=== PATIENT | female | born 1945 | race Caucasian/White ===

== ENCOUNTER 2019-09-07 12:57 | Emergency (ER) | payer OTHER, MEDICAID ==
[~2019-09-07] VITALS: Ht 165.1 cm; Wt 90.7 kg
[2019-09-07 14:33] LABS: BILIRUBIN NEGATIVE (NEGATIVE); BLOOD 1+ (NEGATIVE); CLARITY CLOUDY (CLEAR); COLOR YELLOW (YELLOW); GLUCOSE NEGATIVE (NEGATIVE); KETONE NEGATIVE (NEGATIVE); SPECIFIC GRAVITY 1.005 (1.005-1.030)
[2019-09-07 14:34] LABS: BACTERIA 3+; LEUKO ESTERASE 3+ (NEGATIVE); NITRITE NEGATIVE (NEGATIVE); UROBILINOGEN 0.2 E.U./dl (0.2-1.0); WBC TNTC wbc/hpf (0-5)
[2019-09-07] MEDS ORDERED: VIBRAMYCIN100 MG PO (15:05)
== END 2019-09-07 15:08 | disposition home or self-care (01) ==
LOC: ED 12:57
PROVIDERS: Nurse Practitioner Family
DX: M54.41 Lumbago with sciatica, right side (principal); N39.0 Urinary tract infection, site not specified; E11.9 Type 2 diabetes mellitus without complications; Z88.6 Allergy status to analgesic agent; W22.8XXA Striking against or struck by other objects, initial encounter; Y93.E9 Activity, other interior property and clothing maintenance; Y92.89 Other specified places as the place of occurrence of the external cause; Y99.8 Other external cause status

== ENCOUNTER 2019-10-03 23:40 | Inpatient (IN) | payer OTHER, MEDICAID ==
[~2019-10-03] VITALS: Ht 157.5 cm; Wt 80.8 kg
[~2019-10-03 23:40] MED LIST: VIBRAMYCIN100 MG PO
[2019-10-03 23:43] VITALS: BP 149/68
[2019-10-04 00:16] LABS: BASO % 0.3 % (0.0-1.0); EOS # 0.1 10*3/uL (0.0-0.4); EOS % 1.2 % (1.0-4.0); LYMPH # 1.1 10*3/uL (1.3-4.4); LYMPH % 10.4 % (27.0-41.0); MEAN CELL VOLUME 91.4 fl (81.0-99.0); MEAN CORPUSCULAR HGB 28.5 pg (27.0-31.0); MEAN CORPUSCULAR HGB CONC 31.2 g/dl (33.0-37.0); MONO # 0.8 10*3/uL (0.1-1.0); MONO % 7.9 % (3.0-9.0); NEUT # 8.4 10*3/uL (2.3-7.9); NEUT % 79.6 % (47.0-73.0); PLATELET COUNT AUTOMATED 201 10*3/uL (130-400); RED BLOOD COUNT 3.61 10*6/uL (4.10-5.10); RED CELL DISTRI WIDTH 14.5 % (0-14.5); WHITE BLOOD COUNT 10.6 10*3/uL (4.8-10.8)
[2019-10-04 00:28] LABS: INTERNATIONAL NORM RATIO 1.1 (2.0-3.5)
[2019-10-04 00:34] LABS: ALKALINE PHOSPHATASE 100 U/L (45-117); BUN 19 mg/dl (7-24); CHLORIDE 106 mmol/L (98-107); CREATININE 1.46 mg/dL (0.55-1.02); POTASSIUM 3.5 mmol/L (3.5-5.1); SGOT/AST 14 IU/L (3-35); SGPT/ALT 16 U/L (12-78); SODIUM 136 mmol/L (136-145); TOTAL PROTEIN 6.3 gm/dL (6.4-8.2)
[2019-10-04 00:35] LABS: BILIRUBIN NEGATIVE (NEGATIVE); BLOOD TRACE-INTACT (NEGATIVE); CLARITY CLOUDY (CLEAR); COLOR YELLOW (YELLOW); GLUCOSE NEGATIVE (NEGATIVE); KETONE NEGATIVE (NEGATIVE); LEUKO ESTERASE 3+ (NEGATIVE); NITRITE POSITIVE (NEGATIVE); SPECIFIC GRAVITY 1.015 (1.005-1.030); UROBILINOGEN 0.2 E.U./dl (0.2-1.0)
[2019-10-04 00:45] LABS: TROPONIN I < 0.015 ng/ml (<0.045)
[2019-10-04 00:46] LABS: BACTERIA 3+; EPITHELIAL CELLS TNTC; WBC TNTC wbc/hpf (0-5)
[2019-10-04 01:44] VITALS: BP 132/80
--- NOTE | 2019-10-04 01:44 | NUR ---
A 74, admitted to 5E, under the services of ELIJAH Ziegler DO with a diagnosis of UTI,SEPSIS. Chief complaint is CAMED VIA EMS WITH CHILLS,HOT FLASHES,FEVER,NEAR SYNCOPE. Patient arrived via stretcher from ER. Monitor applied. Initial assessment completed. Vital signs taken and recorded. ELIJAH ZIEGLER DO notified of admission to the 5E unit. Orders received. See assessment for past medical history, medications and allergies. Patient and/or family oriented to unit. [facility] visitation policy reviewed. Clothing/patient valuable form completed. JAMES DIAMOND
[2019-10-04 01:48] VITALS: BP 112/76
--- NOTE | 2019-10-04 02:20 | NUR ---
RESTORIL GIVEN FOR INSOMNIA AND FLEXERIL GIVEN FOR SCIATIC PAIN. SEE MAR.
[2019-10-04] MEDS ORDERED: ARIPIPRAZOLE15 MG PO (02:43)
[2019-10-04] MEDS ORDERED: OXCARBAZEPINE150 MG PO (02:43)
[2019-10-04] MEDS ORDERED: BUSPIRONE HCL10 MG PO (02:44)
[2019-10-04] MEDS ORDERED: BENZTROPINE MESY1 MG PO (02:45)
[2019-10-04] MEDS ORDERED: TRAZODONE50 MG PO (02:46)
[2019-10-04] MEDS ORDERED: SINEMET 25-1001 EACH PO (02:47)
[2019-10-04] MEDS ORDERED: ENALAPRIL MALEAT5 MG PO (02:49)
[2019-10-04] MEDS ORDERED: ESOMEPRAZOLE MA40 M1 PO (02:50)
[2019-10-04] MEDS ORDERED: FUROSEMIDE20 M1 PO (02:50)
[2019-10-04] MEDS ORDERED: JANUVIA100 MG PO (02:51)
[2019-10-04] MEDS ORDERED: METOPROLOL SUCC50 M1 PO (02:51)
[2019-10-04] MEDS ORDERED: SIMVASTATIN40 MG PO (02:52)
[2019-10-04] MEDS ORDERED: ROPINIROLE HYDRO4 MG PO (02:52)
[2019-10-04] MEDS ORDERED: TRULICITY1.5 MG/0.5 SC (02:53)
[2019-10-04] MEDS ORDERED: VIIBRYD40 PO (02:56)
--- NOTE | 2019-10-04 03:20 | NUR ---
RESTORIL AND FLEXERIL EFFECTIVE PER PT. PATIENT SLEEPING INBETWEEN GETTING UP TO BEDSIDE COMMODE TO VOID.
--- NOTE | 2019-10-04 06:44 | NUR ---
PT. HAS BEEN UP AND DOWN VOIDING AND HAD 2 SMALL FORMED STOOL.
[2019-10-04 08:00] VITALS: BP 122/74
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
--- NOTE | 2019-10-04 10:30 | NUR ---
PT COMPLAIN OF LOWER BACK PAIN, TYLENOL GIVEN
--- NOTE | 2019-10-04 10:34 | NUR ---
AUTOMATIC CLIPPER SPOKE WITH THE PATIENT. PATIENT WOULD LIKE TO HAVE HOME HEALTH. PATIENT STATED SHE IS FAMILIAR WITH THE AGENCIES IN THE AREA, SO SHE DOES NOT CARE WHICH COMPANY SHE WOULD HAVE. PATIENT WILL NEED PT/OT ORDERS. AUTOMATIC CLIPPER NOTIFIED [facility] HOSPITALIST COORDINATOR, AND WILL NEED A FACE TO FACE COMPLETED. AUTOMATIC CLIPPER WILL NOTIFY HAND FUR CLEANER.
--- NOTE | 2019-10-04 11:30 | NUR ---
tylenol effective for pain
[2019-10-04 12:00] VITALS: BP 110/68
--- NOTE | 2019-10-04 12:07 | NUR ---
TERRA COTTA MOLD MAKER SPOKE WITH THE PATIENT. SHE DOES NOT CURRENTLY HAVE A PCP. TERRA COTTA MOLD MAKER OFFERED TO HAVE RN HOSPITALIST MAKE HER AN APPOINTMENT WITH THE RESIDENCY CLINIC. PATIENT IS AGREEABLE. TERRA COTTA MOLD MAKER FAXED REFERRAL TO [facility]. WILL NEED A FACE TO FACE.
[2019-10-04 16:00] VITALS: BP 109/65
--- NOTE | 2019-10-04 17:40 | NUR ---
PT COMPLAIN OF BACK PAIN, TYLENOL GIVEN. WILL MONITOR FOR EFFECTIVENSS
[2019-10-04 20:00] VITALS: BP 127/64
--- NOTE | 2019-10-04 22:54 | NUR ---
FAMILY UPDATED ON PLAN OF CARE
--- NOTE | 2019-10-04 23:36 | NUR ---
TYLENOL GIVEN FOR C/O RT HIP PAIN. SCHEDULED MED GIVEN AT THIS TIME. WILL MONITOR EFFECTIVENESS OF TYLENOL.
[2019-10-05] VITALS: BP 121/62
--- NOTE | 2019-10-05 00:20 | NUR ---
PATIENT SLEEPING, NO S/S DISTRESS ON ROOM AIR. TYLENOL APPEARS EFFECTIVE.
[2019-10-05 07:09] LABS: BASO % 0.4 % (0.0-1.0); EOS # 0.2 10*3/uL (0.0-0.4); EOS % 2.6 % (1.0-4.0); LYMPH # 1.4 10*3/uL (1.3-4.4); LYMPH % 19.9 % (27.0-41.0); MEAN CELL VOLUME 91.9 fl (81.0-99.0); MEAN CORPUSCULAR HGB 28.4 pg (27.0-31.0); MEAN CORPUSCULAR HGB CONC 30.9 g/dl (33.0-37.0); MEAN PLATELET VOLUME 11.2 fl (9.6-12.3); MONO # 0.7 10*3/uL (0.1-1.0); MONO % 10.5 % (3.0-9.0); NEUT # 4.5 10*3/uL (2.3-7.9); NEUT % 65.7 % (47.0-73.0); PLATELET COUNT AUTOMATED 216 10*3/uL (130-400); RED BLOOD COUNT 3.59 10*6/uL (4.10-5.10); RED CELL DISTRI WIDTH 14.8 % (0-14.5); WHITE BLOOD COUNT 6.9 10*3/uL (4.8-10.8)
[2019-10-05 07:40] LABS: CREATININE 1.4 mg/dL (0.55-1.02); POTASSIUM 3.7 mmol/L (3.5-5.1)
[2019-10-05 08:00] VITALS: BP 126/68
--- NOTE | 2019-10-05 08:00 | NUR ---
PATIENT REQUESTED AND RECIEVED PO TYLENOL PER PRN ORDER FOR C/O RIGHT HIP PAIN. RATES PAIN 8/10. CHRONIC PAIN FOR THE PAST MONTH PER PT. WILL MONITOR EFFECTIVENESS. CALL LIGHT WITHIN REACH.
--- NOTE | 2019-10-05 09:00 | NUR ---
TYLENOL EFFECTIVE FOR PAIN. WILL CONTINUE TO MONITOR.
[2019-10-05 12:00] VITALS: BP 131/72
--- NOTE | 2019-10-05 14:49 | NUR ---
PT MEDICATED WITH PO TYLENOL PER PRN ORDER FOR C/O RIGHT HIP PAIN. RATES PAIN 10/31. WILL MONITOR EFFECTIVENESS.
--- NOTE | 2019-10-05 15:49 | NUR ---
TYLENOL SLIGHTLY RELIEVING PAIN PER PT. WILL CONTINUE TO MONITOR.
--- NOTE | 2019-10-05 15:49 | NUR ---
TYLENOL RELIEVING PAIN PER PT. WILL CONTINUE TO MONITOR.
[2019-10-05 16:00] VITALS: BP 117/58
--- NOTE | 2019-10-05 18:24 | NUR ---
JERRYCO GIVEN X1 DOSE PER ORDER FOR C/O RIGHT HIP PAIN. RATES PAIN 8/10. WILL MONITOR EFFECTIVENESS.
--- NOTE | 2019-10-05 19:24 | NUR ---
PATIENT STATES NORCO IS EFFECTIVE FOR HER PAIN. PROVIDED WITH CHOCOLATE MILK AND CHAY CRACKERS PER REQUEST. PATIENT RESTING IN BED WITH EASY AND REGULAR RESPIRATIONS. CALL LIGHT IN REACH.
[2019-10-05 20:00] VITALS: BP 122/54
[2019-10-06] VITALS: BP 122/63
--- NOTE | 2019-10-06 03:15 | NUR ---
PT SLEEPING; SNORING RESPIRATIONS. CALL LIGHT IN REACH.
--- NOTE | 2019-10-06 05:16 | NUR ---
TYLENOL GIVEN FOR C/O SCIATIC PAIN. PATIENT ASSISTED TO REPOSITION IN BED WITH A WEDGE PILLOW AND PT STATES THAT SHE FEELS MUCH BETTER. PO MEDS TAKEN WITH EASE, BED IN LOWEST, LOCKED POSITION, CALL LIGHT IN REACH.
[2019-10-06 06:28] LABS: BASO % 0.3 % (0.0-1.0); EOS # 0.3 10*3/uL (0.0-0.4); EOS % 4.7 % (1.0-4.0); HEMATOCRIT 33.2 % (37.0-47.0); LYMPH # 1.6 10*3/uL (1.3-4.4); LYMPH % 25.5 % (27.0-41.0); MEAN CORPUSCULAR HGB 28.9 pg (27.0-31.0); MEAN PLATELET VOLUME 10.9 fl (9.6-12.3); MONO # 0.6 10*3/uL (0.1-1.0); NEUT # 3.6 10*3/uL (2.3-7.9); NEUT % 58.5 % (47.0-73.0); PLATELET COUNT AUTOMATED 230 10*3/uL (130-400); RED BLOOD COUNT 3.57 10*6/uL (4.10-5.10); RED CELL DISTRI WIDTH 14.6 % (0-14.5); WHITE BLOOD COUNT 6.2 10*3/uL (4.8-10.8)
[2019-10-06 08:00] VITALS: BP 131/66
--- NOTE | 2019-10-06 08:15 | NUR ---
IN TO SEE PATIENT THIS AM.
--- NOTE | 2019-10-06 09:27 | NUR ---
NORCO PO GIVEN X1 ORDER FOR C/O RIGHT HIP PAIN. RATES PAIN /10. WILL MONITOR EFFECTIVENESS. PT REPOSITIONED FOR COMFORT. CALL LIGHT WITHIN REACH.
[2019-10-06] MEDS ORDERED: CEPHALEXIN500 M1 PO (10:13)
--- NOTE | 2019-10-06 10:27 | NUR ---
JERRYCO EFFECTIVE PER PT. WILL CONTINUE TO MONITOR. CALL LIGHT WITHIN REACH.
[2019-10-06] MEDS ORDERED: NORCO 5-325 TA1 EACH PO (10:28)
--- NOTE | 2019-10-06 10:39 | NUR ---
Discharge instructions reviewed with patient. Patient receptive and verbalizes understanding. Follow-up care arranged. Written instructions given to patient. GAURANG VARGHESE
--- NOTE | 2019-10-06 11:30 | NUR ---
PATIENT DISCHARGED AT THIS TIME. BELONGINGS WITH PATIENT.
== END 2019-10-06 11:30 | disposition home health service (06) | DRG 872 ==
LOC: ED 23:40 → EDHOLD 10-04 01:01 → 5E 10-04 01:01
PROVIDERS: Internal Medicine; Physician Assistant; ADMIT Family Medicine
DX: A41.9 Sepsis, unspecified organism (principal); N30.01 Acute cystitis with hematuria; E44.0 Moderate protein-calorie malnutrition; D64.9 Anemia, unspecified; N18.3 Chronic kidney disease, stage 3 (moderate); E11.65 Type 2 diabetes mellitus with hyperglycemia; E11.22 Type 2 diabetes mellitus with diabetic chronic kidney disease; E78.5 Hyperlipidemia, unspecified; I12.9 Hypertensive chronic kidney disease with stage 1 through stage 4 chronic kidney disease, or unspecified chronic kidney disease; F32.9 Major depressive disorder, single episode, unspecified; Z96.653 Presence of artificial knee joint, bilateral; M54.31 Sciatica, right side; B96.20 Unspecified Escherichia coli [E. coli] as the cause of diseases classified elsewhere; M79.671 Pain in right foot; G47.30 Sleep apnea, unspecified; G20 Parkinson's disease; Z88.5 Allergy status to narcotic agent; I25.2 Old myocardial infarction; Z90.49 Acquired absence of other specified parts of digestive tract; Z90.710 Acquired absence of both cervix and uterus; Z82.49 Family history of ischemic heart disease and other diseases of the circulatory system; Z79.899 Other long term (current) drug therapy; Z68.32 Body mass index [BMI] 32.0-32.9, adult

== ENCOUNTER → 2019-10-11 | Outpatient (CLI) | payer OTHER, MEDICAID ==
[~2019-10-11] MED LIST changes: +ARIPIPRAZOLE15 MG PO; +BENZTROPINE MESY1 MG PO; +BUSPIRONE HCL10 MG PO; +CEPHALEXIN500 M1 PO; +ENALAPRIL MALEAT5 MG PO; +ESOMEPRAZOLE MA40 M1 PO; +FUROSEMIDE20 M1 PO; +JANUVIA100 MG PO; +METOPROLOL SUCC50 M1 PO; +NORCO 5-325 TA1 EACH PO; +OXCARBAZEPINE150 MG PO; +ROPINIROLE HYDRO4 MG PO; +SIMVASTATIN40 MG PO; +SINEMET 25-1001 EACH PO; +TRAZODONE50 MG PO; +TRULICITY1.5 MG/0.5 SC; +VIIBRYD40 PO
== END | disposition home or self-care (01) ==
LOC: RESCLI 01:54
DX: M54.31 Sciatica, right side (principal); M54.32 Sciatica, left side; G20 Parkinson's disease; F32.9 Major depressive disorder, single episode, unspecified; E78.5 Hyperlipidemia, unspecified; I10 Essential (primary) hypertension; G47.30 Sleep apnea, unspecified; Z09 Encounter for follow-up examination after completed treatment for conditions other than malignant neoplasm; Z79.899 Other long term (current) drug therapy; Z95.828 Presence of other vascular implants and grafts; Z90.49 Acquired absence of other specified parts of digestive tract; Z90.710 Acquired absence of both cervix and uterus; Z98.890 Other specified postprocedural states; Z88.5 Allergy status to narcotic agent

== ENCOUNTER 2019-11-07 19:35 | Inpatient (IN) | payer OTHER, MEDICAID ==
[~2019-11-07] VITALS: Ht 157.4 cm; Wt 79.4 kg
[2019-11-07 19:45] VITALS: BP 63/31
[2019-11-07 19:55] VITALS: BP 82/32
[2019-11-07 19:58] LABS: BASO % 0.4 % (0.0-1.0); EOS # 0.2 10*3/uL (0.0-0.4); EOS % 2.5 % (1.0-4.0); LYMPH % 24.9 % (27.0-41.0); MEAN CELL VOLUME 91.6 fl (81.0-99.0); MEAN CORPUSCULAR HGB 28.3 pg (27.0-31.0); MEAN CORPUSCULAR HGB CONC 30.9 g/dl (33.0-37.0); MEAN PLATELET VOLUME 10.6 fl (9.6-12.3); MONO # 0.5 10*3/uL (0.1-1.0); NEUT # 5.4 10*3/uL (2.3-7.9); NEUT % 65.7 % (47.0-73.0); PLATELET COUNT AUTOMATED 208 10*3/uL (130-400); RED BLOOD COUNT 3.71 10*6/uL (4.10-5.10); RED CELL DISTRI WIDTH 13.9 % (0-14.5); WHITE BLOOD COUNT 8.1 10*3/uL (4.8-10.8)
[2019-11-07 20:10] LABS: ACT PARTIAL THROMBO TIME 25.3 SECONDS (20.0-32.1); INTERNATIONAL NORM RATIO 1.1 (2.0-3.5)
[2019-11-07 20:15] LABS: ALBUMIN 2.9 gm/dl (3.1-4.5); ALKALINE PHOSPHATASE 80 U/L (45-117); BUN 19 mg/dl (7-24); CHLORIDE 107 mmol/L (98-107); CREATININE 1.84 mg/dL (0.55-1.02); POTASSIUM 3.9 mmol/L (3.5-5.1); SGOT/AST 17 IU/L (3-35); SGPT/ALT 11 U/L (12-78); SODIUM 139 mmol/L (136-145)
[2019-11-07 20:16] LABS: TROPONIN I < 0.015 ng/ml (<0.045)
--- NOTE | 2019-11-07 20:19 | NUR ---
PT RESTING WITH TELEVISION ON. DENIES NEEDS AT THIS TIME. UNABLE TO PROVIDE URINE SAMPLE WILL TRY AGAIN LATER.
[2019-11-07 20:50] VITALS: BP 79/40
--- NOTE | 2019-11-07 20:51 | NUR ---
VERBAL PERMISSION GIVEN TO UPDATE FAMILY. YOLANDE. PHONE NUMBER [phone].
[2019-11-07 21:18] VITALS: BP 91/52
--- NOTE | 2019-11-07 22:08 | NUR ---
PT UP TO BEDSIDE COMMODE. UNABLE TO URINATE AT THIS TIME.
[2019-11-07 22:16] VITALS: BP 102/65
[2019-11-07 23:48] LABS: BILIRUBIN NEGATIVE (NEGATIVE); BLOOD NEGATIVE (NEGATIVE); CLARITY CLOUDY (CLEAR); COLOR YELLOW (YELLOW); GLUCOSE NEGATIVE (NEGATIVE); KETONE NEGATIVE (NEGATIVE); LEUKO ESTERASE 3+ (NEGATIVE); NITRITE POSITIVE (NEGATIVE); SPECIFIC GRAVITY 1.015 (1.005-1.030); UROBILINOGEN 0.2 E.U./dl (0.2-1.0)
[2019-11-08] VITALS (7 sets, daily range): BP systolic 104–138; BP diastolic 56–74
[2019-11-08] LABS: EPITHELIAL CELLS 41-50
[2019-11-08 00:01] LABS: BACTERIA 3+; WBC TNTC wbc/hpf (0-5)
--- NOTE | 2019-11-08 00:23 | NUR ---
PT RESTING COMFORTABLY. SAFETY PRECAUTIONS INTACT. AWAITING ROOM ASSIGNMENT FROM INPATIENT.
--- NOTE | 2019-11-08 02:35 | NUR ---
ACS EKG SET COMPLETE. PT RESTING ON LEFT SIDE. SAFETY PRECAUTIONS INTACT. CALL LIGHT WITH IN REACH.
--- NOTE | 2019-11-08 02:51 | NUR ---
PT HAD A LARGE SOFT BROWN BOWEL MOVEMENT.PT REQUESTING PAIN MEDICATION.PT ALSO WOULD LIKE HOSPITAL BED.[facility] CONTACTED FOR FLOOR BED.
--- NOTE | 2019-11-08 06:35 | NUR ---
PATIENT CURRENTLY IN ED HOLD AWAITING ADMISSION TO FLOOR. ADMISSION PROCESS STARTED AND PATIENT WILL RECEIVE BED ASSIGNMENT SOON. PATIENT STATED DILAUDID THAT SHE WAS GIVEN BY WEBLOGIC ADMINISTRATOR WAS EFFECTIVE AT REDUCING PAIN.
--- NOTE | 2019-11-08 07:13 | NUR ---
CALLED AND NOTIFIED NURSING SUPERVISOR LOOPING OF PROGRESS MADE WITH ADMISSION AND MED REC STILL NEEDS COMPLETED PATIENT HAS TWO PHARMACY AND PATIENT ONLY HAD A LIST OF MEDS FROM [facility], STILL NEED TO CALL [facility].
--- NOTE | 2019-11-08 07:15 | NUR ---
REPORT RECEIVED FROM YAMILA VAUGHAN.
--- NOTE | 2019-11-08 11:45 | NUR ---
PT RESTING IN BED. NO VOICED COMPLAINTS. CALL LIGHT WITHIN REACH. WILL CONTINUE TO MONITOR.
--- NOTE | 2019-11-08 12:39 | NUR ---
PT RESTING IN BED AT THIS TIME. VOICED COMPLAINTS OF HIP PAIN 10/31. WILL CONTINUE TO MONITOR.
--- NOTE | 2019-11-08 12:44 | NUR ---
DR MEYER HAS BEEN CONTACTED REGARDING PT PAIN LEVEL.
--- NOTE | 2019-11-08 17:03 | NUR ---
[facility] , under the services of LYNNE Asif MD with a diagnosis of CHEST PAIN. Chief complaint is DENIES. Patient arrived via bed from ER. Monitor applied. Initial assessment completed. Vital signs taken and recorded. LYNNE ASIF MD notified of admission to the unit. Orders received. See assessment for past medical history, medications and allergies. Patient and/or family oriented to unit. [facility] visitation policy reviewed. Clothing/patient valuable form completed. CARLY LAGUNA
--- NOTE | 2019-11-08 17:39 | NUR ---
NORMAL SALINE STARTED AT THIS TIME. WOULD NOT SCAN.
--- NOTE | 2019-11-08 18:57 | NUR ---
DR. LUND NOTIFIED OF CONSULT.
--- NOTE | 2019-11-08 19:34 | NUR ---
ASSESSMENT COMPLETE. PT STATES SHE IS NO LONGER HAVING CHEST PAIN AND NO OTHER COMPLAINTS AT THIS TIME. RESPIRATIONS ARE RELAXED AND REGULAR. CALL LIGHT WITHIN REACH. WILL CONTINUE TO MONITOR
[2019-11-09] VITALS: BP 118/66
--- NOTE | 2019-11-09 04:21 | NUR ---
24 HR chart check completed.
--- NOTE | 2019-11-09 04:49 | NUR ---
Patient sleeping. Respirations relaxed and easy. [place] on. CALL LIGHT WITHIN REACH EYAD RICH
[2019-11-09 12:00] VITALS: BP 111/64
[2019-11-09 13:17] LABS: BASO % 0.3 % (0.0-1.0); EOS # 0.2 10*3/uL (0.0-0.4); EOS % 2.9 % (1.0-4.0); HEMATOCRIT 34.5 % (37.0-47.0); LYMPH # 1.3 10*3/uL (1.3-4.4); MEAN CORPUSCULAR HGB 28.8 pg (27.0-31.0); MEAN PLATELET VOLUME 10.1 fl (9.6-12.3); MONO # 0.4 10*3/uL (0.1-1.0); NEUT % 71.1 % (47.0-73.0); PLATELET COUNT AUTOMATED 195 10*3/uL (130-400); RED BLOOD COUNT 3.71 10*6/uL (4.10-5.10)
[2019-11-09 13:42] LABS: CREATININE 1.58 mg/dL (0.55-1.02)
[2019-11-09 16:00] VITALS: BP 106/57
--- NOTE | 2019-11-09 18:20 | NUR ---
ADMINISTERED IV DILAUDID X 1 ORDERED
--- NOTE | 2019-11-09 18:50 | NUR ---
IV DILAUDID EFFECTIVE, PER PATIENT.
[2019-11-09 20:00] VITALS: BP 118/64
--- NOTE | 2019-11-09 20:40 | NUR ---
IN PT ROOM SHE IS TEARFUL TELLING ME ABOUT HOME SITUATIONS AND LIVING SITUATIONS THAT ARE MAKING HER STRESSED OUT. SHE IS ANXIOUS AND TEARFUL, AND STATES THAT SHE IS ALL WORKED UP AND HER FEELS NAUSEOUS. CALMED DOWN PATIENT AND WILL BRING MEDICATIONS TO HELP HER RELAX AND CALM HER STOMACH
--- NOTE | 2019-11-09 20:42 | NUR ---
CALLED DR ADAMES BECAUSE PATIENT IS ANXIOUS AND STATES HER SOMACH IS UPSET, WILL ADD ORDERS DESIRED.
--- NOTE | 2019-11-09 21:01 | NUR ---
XANAX PO GIVEN FOR ANXIETY AND ZOFRAN PO GIVEN FOR COMPLAINTS OF NAUSEA. WILL MONITOR FOR EFFECTIVENESS, CALL LIGHT WITHIN REACH
--- NOTE | 2019-11-09 21:52 | NUR ---
PT STATES XANAX AND ZOFRAN EFFECTIVE
[2019-11-10] VITALS: BP 108/65
--- NOTE | 2019-11-10 02:03 | NUR ---
24 HR chart check completed.
--- NOTE | 2019-11-10 04:15 | NUR ---
Patient sleeping. Respirations relaxed and easy. [place] ON. EYAD RICH
[2019-11-10 06:20] LABS: BASO % 0.3 % (0.0-1.0); EOS # 0.3 10*3/uL (0.0-0.4); EOS % 5.4 % (1.0-4.0); HEMATOCRIT 33.2 % (37.0-47.0); LYMPH # 1.8 10*3/uL (1.3-4.4); LYMPH % 29.1 % (27.0-41.0); MEAN CELL VOLUME 93.8 fl (81.0-99.0); MEAN CORPUSCULAR HGB 28.2 pg (27.0-31.0); MEAN CORPUSCULAR HGB CONC 30.1 g/dl (33.0-37.0); MEAN PLATELET VOLUME 10.9 fl (9.6-12.3); MONO # 0.6 10*3/uL (0.1-1.0); MONO % 10.1 % (3.0-9.0); NEUT # 3.4 10*3/uL (2.3-7.9); NEUT % 54.4 % (47.0-73.0); PLATELET COUNT AUTOMATED 191 10*3/uL (130-400); RED BLOOD COUNT 3.54 10*6/uL (4.10-5.10); RED CELL DISTRI WIDTH 14.2 % (0-14.5); WHITE BLOOD COUNT 6.2 10*3/uL (4.8-10.8)
[2019-11-10 06:47] LABS: CREATININE 1.38 mg/dL (0.55-1.02)
[2019-11-10 08:00] VITALS: BP 128/98
[2019-11-10 09:40] VITALS: BP 126/80
[2019-11-10 12:00] VITALS: BP 128/67
--- NOTE | 2019-11-10 12:36 | NUR ---
PATIENT TOOK OFF BEATER ROOM HELPER, REFUSES TO HAVE APPLIED BACK ON, STATES CANNOT WEAR THIS DURING THE DAY AND STICKERS MAKE HER ITCH AND BREAK OUT. WILL ATTEPT TO REAPPLY LATER.
[2019-11-10 16:00] VITALS: BP 125/65
--- NOTE | 2019-11-10 18:01 | NUR ---
ADMINISTERED IV DILAUDID X 1 ORDERED FOR RIGHT HIP AND LOWER BACK PAIN.
--- NOTE | 2019-11-10 18:51 | NUR ---
IV DILAUDID EFFECTIVE, PER PATIENT.
--- NOTE | 2019-11-10 19:30 | NUR ---
IN PT ROOM AT THIS TIME, ASSESSMENT COMPLETE. PT STATES THAT SHE IS FEELING BETTER TODAY AND IS LESS ANXIOUS. SHE VOICES NO OTHER COMPLAINTS AT THIS TIME. CALL LIGHT WITHIN REACH, WILL CONTINUE TO MONITOR
[2019-11-10 20:00] VITALS: BP 133/66
[2019-11-11] VITALS: BP 120/60
--- NOTE | 2019-11-11 03:44 | NUR ---
24 HR chart check completed.
[2019-11-11 07:40] LABS: CREATININE 1.26 mg/dL (0.55-1.02)
[2019-11-11 08:00] VITALS: BP 125/70
--- NOTE | 2019-11-11 08:03 | NUR ---
24 HR chart check completed.
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
--- NOTE | 2019-11-11 09:08 | NUR ---
REPORT HAS BEEN MADE TO APS.
--- NOTE | 2019-11-11 10:50 | NUR ---
STRIP MILL OPERATOR INFORMED THE PATIENT THAT A REPORT WAS FILED WITH APS AND JEB BOYDGESS WILL BE IN CONTACT WITH HER. STRIP MILL OPERATOR PROVIDED THE PATIENT WITH VARIOUS RESOURCES ON TRANSPORTATION, HOUSING, AND [facility] CHARITIES FOR ASSISTANCE. MARILIN EXPLAINED TO THE PATIENT PER THE COURT WEBSITE HER HEARING IS AT 2:00PM ON 11/15/2019. STRIP MILL OPERATOR TO FOLLOW.
[2019-11-11 12:00] VITALS: BP 125/64
[2019-11-11 16:00] VITALS: BP 125/64
[2019-11-11 20:00] VITALS: BP 122/69
--- NOTE | 2019-11-11 23:00 | NUR ---
ASSUMED CARE FOR THIS PT AT THIS TIME. PT RESTING QUIETLY IN BED. NO C/O VOICED. CALL LIGHT IN REACH.
[2019-11-12] VITALS: BP 106/87
[2019-11-12 06:22] LABS: BASO % 0.3 % (0.0-1.0); EOS # 0.3 10*3/uL (0.0-0.4); EOS % 4.7 % (1.0-4.0); LYMPH % 27.9 % (27.0-41.0); MEAN CELL VOLUME 93.9 fl (81.0-99.0); MEAN CORPUSCULAR HGB 28.7 pg (27.0-31.0); MEAN CORPUSCULAR HGB CONC 30.6 g/dl (33.0-37.0); MEAN PLATELET VOLUME 10.4 fl (9.6-12.3); MONO # 0.6 10*3/uL (0.1-1.0); MONO % 8.9 % (3.0-9.0); NEUT % 57.5 % (47.0-73.0); PLATELET COUNT AUTOMATED 184 10*3/uL (130-400); RED BLOOD COUNT 3.62 10*6/uL (4.10-5.10); RED CELL DISTRI WIDTH 14.2 % (0-14.5)
[2019-11-12 06:54] LABS: POTASSIUM 4.1 mmol/L (3.5-5.1)
[2019-11-12 06:57] LABS: CREATININE 1.24 mg/dL (0.55-1.02)
--- NOTE | 2019-11-12 07:37 | NUR ---
24 HR chart check completed.
[2019-11-12 08:00] VITALS: BP 124/65; BP 128/68
--- NOTE | 2019-11-12 08:35 | NUR ---
TOOK OVER CARE OF PATIENT. PT IS RESTING COMFORTABLY IN BED EATING BREAKFAST WITH COMPLAINTS OF SLIGHT RIGHT HIP PAIN. SCHEDULED NORCO WAS PROVIDED AND WILL BE REASSESSED. PT HAD NO OTHER COMPLIANTS AT THIS TIME.
[2019-11-12 12:00] VITALS: BP 126/72
[2019-11-12] MEDS ORDERED: CIPRO500 MG PO (12:11)
--- NOTE | 2019-11-12 13:53 | NUR ---
QUILT STUFFER IN TO TALK WITH PT ABOUT WHERE SHE IS GOING TO LIVE AFTER DISCHARGE. PT STATES SHE IS GOING TO GO TO HER BOYFRINEDS MOTHERS HOUSE TO LIVE. WILL CONTINUE TO FOLLOW.
--- NOTE | 2019-11-12 15:13 | NUR ---
Discharge instructions reviewed with patient/family. Patient receptive and verbalizes understanding. Follow-up care arranged. Written instructions given to patient/family. IV WAS REMOVED AND HEART MONITOR WAS REMOVED. OZZIE HENSLEY
[2019-11-13] MEDS ORDERED: OMEPRAZOLE40 MG PO (11:09)
== END 2019-11-12 15:14 | disposition home or self-care (01) | DRG 871 ==
LOC: ED 19:35 → EDHOLD 22:04 → 5E 11-08 15:57
PROVIDERS: Emergency Medicine; ADMIT Internal Medicine
DX: A41.9 Sepsis, unspecified organism (principal); N17.0 Acute kidney failure with tubular necrosis; G93.41 Metabolic encephalopathy; E44.0 Moderate protein-calorie malnutrition; F33.9 Major depressive disorder, recurrent, unspecified; I13.0 Hypertensive heart and chronic kidney disease with heart failure and stage 1 through stage 4 chronic kidney disease, or unspecified chronic kidney disease; N13.30 Unspecified hydronephrosis; K21.9 Gastro-esophageal reflux disease without esophagitis; E86.0 Dehydration; E11.22 Type 2 diabetes mellitus with diabetic chronic kidney disease; I25.10 Atherosclerotic heart disease of native coronary artery without angina pectoris; I50.9 Heart failure, unspecified; Z96.653 Presence of artificial knee joint, bilateral; E11.65 Type 2 diabetes mellitus with hyperglycemia; G47.30 Sleep apnea, unspecified; E78.5 Hyperlipidemia, unspecified; F43.23 Adjustment disorder with mixed anxiety and depressed mood; B96.20 Unspecified Escherichia coli [E. coli] as the cause of diseases classified elsewhere; R19.09 Other intra-abdominal and pelvic swelling, mass and lump; D64.9 Anemia, unspecified; G20 Parkinson's disease; M54.40 Lumbago with sciatica, unspecified side; N18.3 Chronic kidney disease, stage 3 (moderate); Z90.49 Acquired absence of other specified parts of digestive tract; Z90.710 Acquired absence of both cervix and uterus; I25.2 Old myocardial infarction; Z90.5 Acquired absence of kidney; Z82.49 Family history of ischemic heart disease and other diseases of the circulatory system; Z88.5 Allergy status to narcotic agent; Z79.899 Other long term (current) drug therapy; Z68.32 Body mass index [BMI] 32.0-32.9, adult

== ENCOUNTER → 2019-11-14 | Outpatient (CLI) | payer OTHER, MEDICAID ==
[~2019-11-14] MED LIST changes: +CIPRO500 MG PO; +OMEPRAZOLE40 MG PO
== END | disposition home or self-care (01) ==
LOC: LAB 13:58
PROVIDERS: Internal Medicine
DX: N39.0 Urinary tract infection, site not specified (principal); N13.30 Unspecified hydronephrosis

== ENCOUNTER → 2019-11-27 | Outpatient (CLI) | payer OTHER, MEDICAID ==
[2019-11-27 11:53] LABS: BASO % 0.3 % (0.0-1.0); EOS # 0.4 10*3/uL (0.0-0.4); EOS % 3.8 % (1.0-4.0); HEMATOCRIT 39.1 % (37.0-47.0); LYMPH # 1.8 10*3/uL (1.3-4.4); LYMPH % 19.2 % (27.0-41.0); MEAN CELL VOLUME 91.4 fl (81.0-99.0); MEAN CORPUSCULAR HGB CONC 30.7 g/dl (33.0-37.0); MONO # 0.6 10*3/uL (0.1-1.0); MONO % 6.5 % (3.0-9.0); NEUT # 6.3 10*3/uL (2.3-7.9); NEUT % 69.3 % (47.0-73.0); PLATELET COUNT AUTOMATED 249 10*3/uL (130-400); RED BLOOD COUNT 4.28 10*6/uL (4.10-5.10); RED CELL DISTRI WIDTH 13.6 % (0-14.5); WHITE BLOOD COUNT 9.1 10*3/uL (4.8-10.8)
[2019-11-27 11:56] LABS: BILIRUBIN NEGATIVE (NEGATIVE); BLOOD TRACE-INTACT (NEGATIVE); CLARITY CLOUDY (CLEAR); COLOR YELLOW (YELLOW); GLUCOSE NEGATIVE (NEGATIVE); KETONE NEGATIVE (NEGATIVE); LEUKO ESTERASE 3+ (NEGATIVE); NITRITE NEGATIVE (NEGATIVE); UROBILINOGEN 0.2 E.U./dl (0.2-1.0)
[2019-11-27 11:59] LABS: BACTERIA TRACE; EPITHELIAL CELLS 31-40; WBC 41-50 wbc/hpf (0-5); YEAST TRACE
[2019-11-27 12:01] LABS: ACT PARTIAL THROMBO TIME 24.7 SECONDS (20.0-32.1)
[2019-11-27 12:03] LABS: ALBUMIN 3.7 gm/dl (3.1-4.5); POTASSIUM 4.3 mmol/L (3.5-5.1)
[2019-11-27 12:08] LABS: CREATININE 1.43 mg/dL (0.55-1.02); TOTAL PROTEIN 7.6 gm/dL (6.4-8.2)
== END | disposition home or self-care (01) ==
LOC: LAB 10:44 → CARD 10:44
PROVIDERS: Urology
DX: Z01.818 Encounter for other preprocedural examination (principal); R31.9 Hematuria, unspecified; I10 Essential (primary) hypertension; E11.9 Type 2 diabetes mellitus without complications; I25.2 Old myocardial infarction

== ENCOUNTER → 2020-03-03 | Outpatient (CLI) | payer MEDICARE | END | disposition home or self-care (01) | LOC: RESCLI 14:09 | PROVIDERS: ATTEND Internal Medicine | DX: E11.9 Type 2 diabetes mellitus without complications (principal); I10 Essential (primary) hypertension; E78.00 Pure hypercholesterolemia, unspecified; E66.01 Morbid (severe) obesity due to excess calories; E55.9 Vitamin D deficiency, unspecified ==

== ENCOUNTER → 2020-07-03 | Outpatient (CLI) | payer OTHER ==
[~2020-07-03] MED LIST changes: +ABILIFY5 MG PO; -ARIPIPRAZOLE15 MG PO; +COGENTIN0.5 MG PO; +ZOLOFT50 MG PO
== END | disposition home or self-care (01) ==
LOC: RESCLI
PROVIDERS: ATTEND Internal Medicine
DX: G20 Parkinson's disease (principal); M54.31 Sciatica, right side; M54.32 Sciatica, left side; I12.9 Hypertensive chronic kidney disease with stage 1 through stage 4 chronic kidney disease, or unspecified chronic kidney disease; E11.22 Type 2 diabetes mellitus with diabetic chronic kidney disease; N18.32 Chronic kidney disease, stage 3b; F32.9 Major depressive disorder, single episode, unspecified; E78.5 Hyperlipidemia, unspecified; G47.30 Sleep apnea, unspecified; K21.9 Gastro-esophageal reflux disease without esophagitis; I25.118 Atherosclerotic heart disease of native coronary artery with other forms of angina pectoris; R07.89 Other chest pain; Z88.8 Allergy status to other drugs, medicaments and biological substances; Z79.899 Other long term (current) drug therapy; Z95.828 Presence of other vascular implants and grafts; Z90.49 Acquired absence of other specified parts of digestive tract; Z98.890 Other specified postprocedural states

== ENCOUNTER → 2020-07-09 | Outpatient (CLI) | payer OTHER ==
[2020-07-09 13:15] LABS: BASO % 0.4 % (0.0-1.0); EOS # 0.2 10*3/uL (0.0-0.4); EOS % 2.6 % (1.0-4.0); HEMATOCRIT 39.4 % (37.0-47.0); LYMPH % 25.3 % (27.0-41.0); MEAN CELL VOLUME 90.8 fl (81.0-99.0); MEAN CORPUSCULAR HGB 27.9 pg (27.0-31.0); MEAN CORPUSCULAR HGB CONC 30.7 g/dl (33.0-37.0); MEAN PLATELET VOLUME 10.3 fl (9.6-12.3); MONO # 0.5 10*3/uL (0.1-1.0); MONO % 6.2 % (3.0-9.0); NEUT # 5.3 10*3/uL (2.3-7.9); PLATELET COUNT AUTOMATED 280 10*3/uL (130-400); RED BLOOD COUNT 4.34 10*6/uL (4.10-5.10); RED CELL DISTRI WIDTH 14.3 % (0-14.5); WHITE BLOOD COUNT 8.1 10*3/uL (4.8-10.8)
[2020-07-09 13:34] LABS: ALBUMIN 3.5 gm/dl (3.1-4.5); ALKALINE PHOSPHATASE 113 U/L (45-117); BUN 17 mg/dl (7-24); CHLORIDE 109 mmol/L (98-107); CHOLESTEROL 129 mg/dL (<200); CREATININE 1.42 mg/dL (0.55-1.02); HDL CHOLESTEROL 48 mg/dl (40-60); LDL CHOLESTEROL 52 mg/dL (9-159); POTASSIUM 3.8 mmol/L (3.5-5.1); SGOT/AST 16 IU/L (3-35); SGPT/ALT 15 U/L (12-78); SODIUM 144 mmol/L (136-145); TOTAL PROTEIN 7.6 gm/dL (6.4-8.2); TRIGLYCERIDES 145 mg/dl (<150); VLDL CHOLESTEROL 29 mg/dL (6-40)
[2020-07-09 13:52] LABS: TROPONIN I < 0.015 ng/ml (<0.045)
== END | disposition home or self-care (01) ==
LOC: LAB 12:57
PROVIDERS: Internal Medicine; ATTEND Internal Medicine
DX: I10 Essential (primary) hypertension (principal); R06.02 Shortness of breath; E78.5 Hyperlipidemia, unspecified; E11.9 Type 2 diabetes mellitus without complications; R07.89 Other chest pain

== ENCOUNTER → 2020-07-24 | Outpatient (CLI) | payer OTHER | END | disposition home or self-care (01) | LOC: COVID19 09:58 | PROVIDERS: ATTEND Ophthalmology | DX: Z01.812 Encounter for preprocedural laboratory examination (principal); Z20.822 Contact with and (suspected) exposure to COVID-19 ==

== ENCOUNTER → 2020-07-29 | Day surgery (SDC) | payer OTHER ==
[~2020-07-29] VITALS: Ht 162.5 cm; Wt 68.0 kg
[2020-07-29 07:08] VITALS: BP 130/66
[2020-07-29 08:15] VITALS: BP 133/112
[2020-07-29 08:30] VITALS: BP 140/66
[2020-07-29 08:45] VITALS: BP 126/64
== END ==
LOC: SDC 07-24 09:30
PROVIDERS: ATTEND Ophthalmology
DX: H25.812 Combined forms of age-related cataract, left eye (principal); E11.22 Type 2 diabetes mellitus with diabetic chronic kidney disease; I12.9 Hypertensive chronic kidney disease with stage 1 through stage 4 chronic kidney disease, or unspecified chronic kidney disease; N18.30 Chronic kidney disease, stage 3 unspecified; G20 Parkinson's disease; G47.30 Sleep apnea, unspecified; F32.9 Major depressive disorder, single episode, unspecified; F17.210 Nicotine dependence, cigarettes, uncomplicated; Z96.653 Presence of artificial knee joint, bilateral; Z79.899 Other long term (current) drug therapy

== ENCOUNTER → 2020-08-06 | Outpatient (CLI) | payer OTHER | END | disposition home or self-care (01) | LOC: CARD 01:44 | PROVIDERS: ATTEND Internal Medicine Cardiovascular Disease | DX: I25.9 Chronic ischemic heart disease, unspecified (principal); R53.81 Other malaise; I10 Essential (primary) hypertension; E11.9 Type 2 diabetes mellitus without complications; E78.5 Hyperlipidemia, unspecified; I49.3 Ventricular premature depolarization; I20.9 Angina pectoris, unspecified ==

== ENCOUNTER → 2020-08-21 | Outpatient (CLI) | payer OTHER | END | disposition home or self-care (01) | LOC: COVID19 13:16 | PROVIDERS: ATTEND Ophthalmology | DX: Z01.812 Encounter for preprocedural laboratory examination (principal); Z20.822 Contact with and (suspected) exposure to COVID-19 ==

== ENCOUNTER → 2020-08-26 | Day surgery (SDC) | payer OTHER ==
[~2020-08-26] VITALS: Ht 157.4 cm; Wt 81.6 kg
[2020-08-26 11:11] VITALS: BP 141/73
[2020-08-26 11:54] VITALS: BP 112/68
[2020-08-26 12:09] VITALS: BP 101/68
[2020-08-26 12:24] VITALS: BP 132/72
== END | disposition home or self-care (01) ==
LOC: SDC 08-21 11:00
PROVIDERS: ATTEND Ophthalmology
DX: H25.811 Combined forms of age-related cataract, right eye (principal); I13.0 Hypertensive heart and chronic kidney disease with heart failure and stage 1 through stage 4 chronic kidney disease, or unspecified chronic kidney disease; E11.22 Type 2 diabetes mellitus with diabetic chronic kidney disease; F32.9 Major depressive disorder, single episode, unspecified; N18.30 Chronic kidney disease, stage 3 unspecified; I50.9 Heart failure, unspecified; G20 Parkinson's disease; J45.909 Unspecified asthma, uncomplicated; Z90.710 Acquired absence of both cervix and uterus; Z96.653 Presence of artificial knee joint, bilateral; Z79.899 Other long term (current) drug therapy

== ENCOUNTER 2020-11-05 19:17 | Emergency (ER) | payer OTHER ==
[~2020-11-05] VITALS: Ht 157.4 cm; Wt 75.3 kg
[2020-11-05] MEDS ORDERED: METHOCARBAMOL500 M1 PO (20:52)
[2020-11-05] MEDS ORDERED: NAPROXEN250 MG PO (20:52)
== END 2020-11-05 21:01 | disposition home or self-care (01) ==
LOC: ED 19:17
DX: S13.4XXA Sprain of ligaments of cervical spine, initial encounter (principal); Z90.49 Acquired absence of other specified parts of digestive tract; Z90.710 Acquired absence of both cervix and uterus; Z98.890 Other specified postprocedural states; Z79.899 Other long term (current) drug therapy; Z88.6 Allergy status to analgesic agent; Z88.5 Allergy status to narcotic agent; X50.1XXA Overexertion from prolonged static or awkward postures, initial encounter; Y93.89 Activity, other specified; Y92.89 Other specified places as the place of occurrence of the external cause; Y99.9 Unspecified external cause status

== ENCOUNTER 2022-01-13 18:53 | Emergency (ER) | payer OTHER ==
[~2022-01-13] VITALS: Ht 157.4 cm; Wt 72.6 kg
[~2022-01-13 18:53] MED LIST changes: +METHOCARBAMOL500 M1 PO; +NAPROXEN250 MG PO
[2022-01-13 19:29] LABS: BASO # 0.1 10*3/uL (0.0-0.1); BASO % 0.8 % (0.0-1.0); EOS # 0.9 10*3/uL (0.0-0.4); EOS % 11.6 % (1.0-4.0); HEMATOCRIT 34.8 % (37.0-47.0); LYMPH # 1.8 10*3/uL (1.3-4.4); LYMPH % 23.6 % (27.0-41.0); MEAN CELL VOLUME 91.8 fl (81.0-99.0); MEAN CORPUSCULAR HGB 30.1 pg (27.0-31.0); MEAN CORPUSCULAR HGB CONC 32.8 g/dl (33.0-37.0); MEAN PLATELET VOLUME 10.2 fl (9.6-12.3); MONO # 0.6 10*3/uL (0.1-1.0); MONO % 7.8 % (3.0-9.0); NEUT # 4.2 10*3/uL (2.3-7.9); NEUT % 55.7 % (47.0-73.0); PLATELET COUNT AUTOMATED 203 10*3/uL (130-400); RED BLOOD COUNT 3.79 10*6/uL (4.10-5.10); RED CELL DISTRI WIDTH 12.9 % (0-14.5); WHITE BLOOD COUNT 7.6 10*3/uL (4.8-10.8)
[2022-01-13 19:41] LABS: CREATININE 1.6 mg/dL (0.55-1.02); POTASSIUM 4.2 mmol/L (3.5-5.1)
[2022-01-13] MEDS ORDERED: HYDROXYZINE HCL25 MG PO (20:13)
== END 2022-01-13 20:30 | disposition home or self-care (01) ==
LOC: ED 18:53
PROVIDERS: Internal Medicine
DX: R60.0 Localized edema (principal); L29.9 Pruritus, unspecified; D64.9 Anemia, unspecified; N18.32 Chronic kidney disease, stage 3b; Z88.6 Allergy status to analgesic agent; Z88.5 Allergy status to narcotic agent; Z79.899 Other long term (current) drug therapy; Z96.653 Presence of artificial knee joint, bilateral; Z90.710 Acquired absence of both cervix and uterus; Z90.49 Acquired absence of other specified parts of digestive tract; Z98.890 Other specified postprocedural states

== ENCOUNTER → 2022-01-28 | Outpatient (CLI) | payer OTHER ==
[~2022-01-28] MED LIST changes: +HYDROXYZINE HCL25 MG PO
== END | disposition home or self-care (01) ==
LOC: RESCLI 13:18
PROVIDERS: ATTEND Internal Medicine
DX: G20 Parkinson's disease (principal); I12.9 Hypertensive chronic kidney disease with stage 1 through stage 4 chronic kidney disease, or unspecified chronic kidney disease; E11.22 Type 2 diabetes mellitus with diabetic chronic kidney disease; N18.32 Chronic kidney disease, stage 3b; I25.118 Atherosclerotic heart disease of native coronary artery with other forms of angina pectoris; F32.9 Major depressive disorder, single episode, unspecified; G47.30 Sleep apnea, unspecified; R60.0 Localized edema; Z98.890 Other specified postprocedural states; Z90.49 Acquired absence of other specified parts of digestive tract; Z90.710 Acquired absence of both cervix and uterus; Z88.8 Allergy status to other drugs, medicaments and biological substances; Z79.899 Other long term (current) drug therapy

== ENCOUNTER → 2022-02-28 | Outpatient (CLI) | payer OTHER | END | disposition home or self-care (01) | LOC: RESCLI 03:59 | PROVIDERS: ATTEND Internal Medicine | DX: Z23 Encounter for immunization (principal); I12.9 Hypertensive chronic kidney disease with stage 1 through stage 4 chronic kidney disease, or unspecified chronic kidney disease; E11.22 Type 2 diabetes mellitus with diabetic chronic kidney disease; N18.30 Chronic kidney disease, stage 3 unspecified; G20 Parkinson's disease; I25.10 Atherosclerotic heart disease of native coronary artery without angina pectoris; F32.9 Major depressive disorder, single episode, unspecified; E78.5 Hyperlipidemia, unspecified; I25.2 Old myocardial infarction; K21.9 Gastro-esophageal reflux disease without esophagitis; G47.30 Sleep apnea, unspecified ==

== ENCOUNTER → 2022-05-10 | Outpatient (CLI) | payer OTHER | END | disposition home or self-care (01) | LOC: US 00:51 | PROVIDERS: ATTEND Internal Medicine Nephrology | DX: N13.30 Unspecified hydronephrosis (principal) ==

== ENCOUNTER → 2022-05-17 | Outpatient (CLI) | payer OTHER | END | disposition home or self-care (01) | LOC: MAMMO 04-05 13:30 | PROVIDERS: ATTEND Internal Medicine | DX: Z12.31 Encounter for screening mammogram for malignant neoplasm of breast (principal); N64.9 Disorder of breast, unspecified ==

== ENCOUNTER → 2022-07-11 | Outpatient (CLI) | payer OTHER ==
[2022-07-11 18:26] LABS: BASO % 0.4 % (0.0-1.0); EOS # 0.3 10*3/uL (0.0-0.4); EOS % 3.9 % (1.0-4.0); HEMATOCRIT 42.6 % (37.0-47.0); LYMPH # 1.5 10*3/uL (1.3-4.4); LYMPH % 18.3 % (27.0-41.0); MEAN CELL VOLUME 90.8 fl (81.0-99.0); MEAN CORPUSCULAR HGB CONC 31.9 g/dl (33.0-37.0); MEAN PLATELET VOLUME 9.7 fl (9.6-12.3); MONO # 0.5 10*3/uL (0.1-1.0); MONO % 6.4 % (3.0-9.0); NEUT # 5.9 10*3/uL (2.3-7.9); NEUT % 70.3 % (47.0-73.0); PLATELET COUNT AUTOMATED 231 10*3/uL (130-400); RED BLOOD COUNT 4.69 10*6/uL (4.10-5.10); RED CELL DISTRI WIDTH 13.5 % (0-14.5); WHITE BLOOD COUNT 8.4 10*3/uL (4.8-10.8)
[2022-07-11 18:42] LABS: BILIRUBIN Negative (Negative); BLOOD Negative (Negative); CLARITY Clear (Clear); COLOR Yellow (Yellow); GLUCOSE 2+ (Negative); KETONE Negative (Negative); LEUKO ESTERASE 2+ (Negative); NITRITE Negative (Negative); UROBILINOGEN 0.2 E.U./dl (0.0-1.0)
[2022-07-11 18:50] LABS: POTASSIUM 3.7 mmol/L (3.4-5.1)
[2022-07-11 19:10] LABS: BACTERIA 1+
[2022-07-11 19:18] LABS: URINE CREATININE RANDOM 36.68 mg/dL
[2022-07-11 19:23] LABS: VITAMIN D, 25-HYDROXY 22.2 ng/mL (30-100)
== END | disposition home or self-care (01) ==
LOC: LAB 17:56
PROVIDERS: ATTEND Internal Medicine Nephrology
DX: N18.32 Chronic kidney disease, stage 3b (principal); D63.1 Anemia in chronic kidney disease; N25.81 Secondary hyperparathyroidism of renal origin; Z79.899 Other long term (current) drug therapy

== ENCOUNTER → 2022-11-16 | Outpatient (CLI) | payer OTHER | END | disposition home or self-care (01) | LOC: RESCLI 01:44 | PROVIDERS: ATTEND Internal Medicine | DX: M54.31 Sciatica, right side (principal); G20 Parkinson's disease; M54.32 Sciatica, left side; F32.9 Major depressive disorder, single episode, unspecified; E78.5 Hyperlipidemia, unspecified; I10 Essential (primary) hypertension; G47.30 Sleep apnea, unspecified; I25.118 Atherosclerotic heart disease of native coronary artery with other forms of angina pectoris; E11.9 Type 2 diabetes mellitus without complications; R60.0 Localized edema; K21.9 Gastro-esophageal reflux disease without esophagitis; Z13.9 Encounter for screening, unspecified; Z00.00 Encounter for general adult medical examination without abnormal findings; Z98.890 Other specified postprocedural states; Z79.899 Other long term (current) drug therapy ==

== ENCOUNTER → 2022-12-08 | Outpatient (CLI) | payer OTHER ==
[2022-12-08 15:46] LABS: BASO % 0.5 % (0.0-1.0); BILIRUBIN Negative (Negative); BLOOD Negative (Negative); CLARITY Clear (Clear); COLOR Yellow (Yellow); EOS # 0.3 10*3/uL (0.0-0.4); EOS % 4.7 % (1.0-4.0); GLUCOSE 2+ (Negative); HEMATOCRIT 37.5 % (37.0-47.0); KETONE Negative (Negative); LEUKO ESTERASE 1+ (Negative); LYMPH # 1.4 10*3/uL (1.3-4.4); LYMPH % 21.8 % (27.0-41.0); MEAN CELL VOLUME 91.7 fl (81.0-99.0); MEAN CORPUSCULAR HGB 29.6 pg (27.0-31.0); MEAN CORPUSCULAR HGB CONC 32.3 g/dl (33.0-37.0); MEAN PLATELET VOLUME 9.7 fl (9.6-12.3); MONO # 0.5 10*3/uL (0.1-1.0); NEUT # 4.3 10*3/uL (2.3-7.9); NEUT % 65.2 % (47.0-73.0); NITRITE Negative (Negative); PH 5.5 (4.5-8.0); PLATELET COUNT AUTOMATED 193 10*3/uL (130-400); RED BLOOD COUNT 4.09 10*6/uL (4.10-5.10); RED CELL DISTRI WIDTH 14.1 % (0-14.5); UROBILINOGEN 0.2 E.U./dl (0.0-1.0); WHITE BLOOD COUNT 6.6 10*3/uL (4.8-10.8)
[2022-12-08 16:08] LABS: BACTERIA 1+; WBC 31-40 wbc/hpf (0-5)
[2022-12-08 16:10] LABS: ALKALINE PHOSPHATASE 96 U/L (46-116); BUN 12 mg/dl (9-23); CHLORIDE 107 mmol/L (98-107); POTASSIUM 3.7 mmol/L (3.4-5.1); TOTAL PROTEIN 6.7 gm/dL (6.0-8.0)
[2022-12-08 16:12] LABS: SGPT/ALT < 7 U/L (10-49)
== END | disposition home or self-care (01) ==
LOC: LAB 00:35
PROVIDERS: ATTEND Urology
DX: N20.0 Calculus of kidney (principal)

== ENCOUNTER → 2022-12-14 | Outpatient (CLI) | payer OTHER | END | disposition home or self-care (01) | LOC: MRI 14:25 | PROVIDERS: ATTEND Urology | DX: N26.1 Atrophy of kidney (terminal) (principal); N28.89 Other specified disorders of kidney and ureter; N13.30 Unspecified hydronephrosis ==

== ENCOUNTER → 2023-01-26 | Outpatient (CLI) | payer OTHER | END | disposition home or self-care (01) | LOC: NM 09:10 | PROVIDERS: ATTEND Urology | DX: N13.9 Obstructive and reflux uropathy, unspecified (principal); N18.30 Chronic kidney disease, stage 3 unspecified; R10.9 Unspecified abdominal pain; N28.89 Other specified disorders of kidney and ureter ==

== ENCOUNTER → 2023-02-01 | Outpatient (CLI) | payer OTHER | END | disposition home or self-care (01) | LOC: RESCLI 01:27 | PROVIDERS: ATTEND Internal Medicine | DX: M54.31 Sciatica, right side (principal); M54.32 Sciatica, left side; G20.C Parkinsonism, unspecified; E11.22 Type 2 diabetes mellitus with diabetic chronic kidney disease; N18.32 Chronic kidney disease, stage 3b; Z79.899 Other long term (current) drug therapy; Z88.8 Allergy status to other drugs, medicaments and biological substances; Z90.49 Acquired absence of other specified parts of digestive tract; Z96.651 Presence of right artificial knee joint; Z96.652 Presence of left artificial knee joint; F32.9 Major depressive disorder, single episode, unspecified; E78.5 Hyperlipidemia, unspecified; I12.9 Hypertensive chronic kidney disease with stage 1 through stage 4 chronic kidney disease, or unspecified chronic kidney disease; G47.33 Obstructive sleep apnea (adult) (pediatric); I25.118 Atherosclerotic heart disease of native coronary artery with other forms of angina pectoris; R60.0 Localized edema; Z00.00 Encounter for general adult medical examination without abnormal findings; K21.9 Gastro-esophageal reflux disease without esophagitis; F41.9 Anxiety disorder, unspecified; R21 Rash and other nonspecific skin eruption ==

== ENCOUNTER → 2023-02-09 | Outpatient (CLI) | payer OTHER ==
[2023-02-09 14:10] LABS: BASO % 0.4 % (0.0-1.0); EOS # 0.3 10*3/uL (0.0-0.4); EOS % 4.1 % (1.0-4.0); HEMATOCRIT 39.4 % (37.0-47.0); LYMPH # 1.5 10*3/uL (1.3-4.4); LYMPH % 21.3 % (27.0-41.0); MEAN CELL VOLUME 92.7 fl (81.0-99.0); MEAN CORPUSCULAR HGB 30.1 pg (27.0-31.0); MEAN CORPUSCULAR HGB CONC 32.5 g/dl (33.0-37.0); MONO # 0.5 10*3/uL (0.1-1.0); MONO % 6.9 % (3.0-9.0); NEUT # 4.6 10*3/uL (2.3-7.9); NEUT % 66.7 % (47.0-73.0); PLATELET COUNT AUTOMATED 194 10*3/uL (130-400); RED BLOOD COUNT 4.25 10*6/uL (4.10-5.10); RED CELL DISTRI WIDTH 13.1 % (0-14.5); WHITE BLOOD COUNT 6.8 10*3/uL (4.8-10.8)
[2023-02-09 14:38] LABS: ALKALINE PHOSPHATASE 95 U/L (46-116); BUN 16 mg/dl (9-23); CHLORIDE 106 mmol/L (98-107); POTASSIUM 3.8 mmol/L (3.4-5.1); TOTAL PROTEIN 6.9 gm/dL (6.0-8.0)
[2023-02-09 14:39] LABS: SGPT/ALT < 7 U/L (10-49)
== END | disposition home or self-care (01) ==
LOC: LAB 13:53
PROVIDERS: ATTEND Student in an Organized Health Care Education/Training Program
DX: E11.9 Type 2 diabetes mellitus without complications (principal); R06.02 Shortness of breath

== ENCOUNTER → 2023-02-28 | Outpatient (CLI) | payer OTHER ==
[~2023-02-28] MED LIST changes: +SEPTDS PO
== END | disposition home or self-care (01) ==
LOC: CARD 14:25
PROVIDERS: ATTEND Student in an Organized Health Care Education/Training Program
DX: I25.118 Atherosclerotic heart disease of native coronary artery with other forms of angina pectoris (principal); M54.31 Sciatica, right side

== ENCOUNTER → 2023-04-27 | Outpatient (CLI) | payer OTHER | END | disposition home or self-care (01) | LOC: RESCLI 13:06 | PROVIDERS: ATTEND Internal Medicine | DX: M79.605 Pain in left leg (principal); Z98.890 Other specified postprocedural states; Z90.49 Acquired absence of other specified parts of digestive tract; Z90.710 Acquired absence of both cervix and uterus; Z82.49 Family history of ischemic heart disease and other diseases of the circulatory system; Z88.5 Allergy status to narcotic agent; Z79.899 Other long term (current) drug therapy ==

== ENCOUNTER → 2023-04-28 | Outpatient (CLI) | payer OTHER | END | disposition home or self-care (01) | LOC: RAD 11:47 | PROVIDERS: ATTEND Internal Medicine | DX: M77.32 Calcaneal spur, left foot (principal); M77.8 Other enthesopathies, not elsewhere classified ==

== ENCOUNTER → 2023-05-03 | Outpatient (CLI) | payer OTHER | END | disposition home or self-care (01) | LOC: RESCLI 00:31 | PROVIDERS: ATTEND Student in an Organized Health Care Education/Training Program | DX: I12.9 Hypertensive chronic kidney disease with stage 1 through stage 4 chronic kidney disease, or unspecified chronic kidney disease (principal); E11.22 Type 2 diabetes mellitus with diabetic chronic kidney disease; N18.32 Chronic kidney disease, stage 3b; M54.31 Sciatica, right side; R21 Rash and other nonspecific skin eruption; M79.605 Pain in left leg; M54.9 Dorsalgia, unspecified; F41.9 Anxiety disorder, unspecified; Z13.9 Encounter for screening, unspecified; I25.118 Atherosclerotic heart disease of native coronary artery with other forms of angina pectoris; R60.0 Localized edema; G47.30 Sleep apnea, unspecified; F32.9 Major depressive disorder, single episode, unspecified; E78.5 Hyperlipidemia, unspecified; G20.A1 Parkinson's disease without dyskinesia, without mention of fluctuations; Z88.5 Allergy status to narcotic agent; Z98.890 Other specified postprocedural states; Z82.49 Family history of ischemic heart disease and other diseases of the circulatory system; Z79.899 Other long term (current) drug therapy ==

== ENCOUNTER → 2023-05-04 | Outpatient (CLI) | payer OTHER ==
[2023-05-04 12:49] LABS: CHOLESTEROL 148 mg/dL (<200); LDL CHOLESTEROL 69 mg/dL (9-159); TRIGLYCERIDES 170 mg/dl (<150)
== END | disposition home or self-care (01) ==
LOC: LAB 11:45
PROVIDERS: Student in an Organized Health Care Education/Training Program; ATTEND Student in an Organized Health Care Education/Training Program
DX: E11.9 Type 2 diabetes mellitus without complications (principal)

== ENCOUNTER → 2023-05-12 | Outpatient (CLI) | payer OTHER ==
[2023-05-12 12:23] LABS: BASO % 0.6 % (0.0-1.0); EOS # 0.3 10*3/uL (0.0-0.4); EOS % 4.5 % (1.0-4.0); HEMATOCRIT 40.7 % (37.0-47.0); LYMPH # 1.6 10*3/uL (1.3-4.4); LYMPH % 25.6 % (27.0-41.0); MEAN CELL VOLUME 95.1 fl (81.0-99.0); MEAN CORPUSCULAR HGB CONC 30.5 g/dl (33.0-37.0); MEAN PLATELET VOLUME 10.1 fl (9.6-12.3); MONO # 0.5 10*3/uL (0.1-1.0); MONO % 7.5 % (3.0-9.0); NEUT # 3.8 10*3/uL (2.3-7.9); NEUT % 60.2 % (47.0-73.0); PLATELET COUNT AUTOMATED 236 10*3/uL (130-400); RED BLOOD COUNT 4.28 10*6/uL (4.10-5.10); RED CELL DISTRI WIDTH 13.1 % (0-14.5); WHITE BLOOD COUNT 6.2 10*3/uL (4.8-10.8)
[2023-05-12 12:47] LABS: ALKALINE PHOSPHATASE 102 U/L (46-116); BUN 16 mg/dl (9-23); CHLORIDE 108 mmol/L (98-107); POTASSIUM 4.4 mmol/L (3.4-5.1)
[2023-05-12 12:48] LABS: SGPT/ALT < 7 U/L (5-49)
[2023-05-12 12:51] LABS: ACT PARTIAL THROMBO TIME 27.6 SECONDS (20.0-32.1)
== END | disposition home or self-care (01) ==
LOC: US 03:35
PROVIDERS: Urology; ATTEND Internal Medicine
DX: Z01.818 Encounter for other preprocedural examination (principal); I12.9 Hypertensive chronic kidney disease with stage 1 through stage 4 chronic kidney disease, or unspecified chronic kidney disease; N18.9 Chronic kidney disease, unspecified; M54.9 Dorsalgia, unspecified; K21.9 Gastro-esophageal reflux disease without esophagitis; D68.8 Other specified coagulation defects; R16.0 Hepatomegaly, not elsewhere classified; K76.0 Fatty (change of) liver, not elsewhere classified; R16.1 Splenomegaly, not elsewhere classified; Z90.710 Acquired absence of both cervix and uterus; Z90.49 Acquired absence of other specified parts of digestive tract

== ENCOUNTER → 2023-05-17 | Outpatient (CLI) | payer OTHER ==
[2023-05-17 11:32] LABS: BILIRUBIN Negative (Negative); BLOOD Negative (Negative); CLARITY Clear (Clear); COLOR Yellow (Yellow); GLUCOSE 3+ (Negative); KETONE Negative (Negative); LEUKO ESTERASE 1+ (Negative); NITRITE Negative (Negative); PH 6.5 (4.5-8.0)
[2023-05-17 12:10] LABS: BACTERIA 2+; WBC TNTC wbc/hpf (0-5)
== END | disposition home or self-care (01) ==
LOC: RESCLI 01:30
PROVIDERS: Internal Medicine; ATTEND Student in an Organized Health Care Education/Training Program
DX: I12.9 Hypertensive chronic kidney disease with stage 1 through stage 4 chronic kidney disease, or unspecified chronic kidney disease (principal); E11.22 Type 2 diabetes mellitus with diabetic chronic kidney disease; N18.9 Chronic kidney disease, unspecified; M79.605 Pain in left leg; M54.9 Dorsalgia, unspecified; M54.31 Sciatica, right side; F32.9 Major depressive disorder, single episode, unspecified; E78.5 Hyperlipidemia, unspecified; R60.0 Localized edema; F41.9 Anxiety disorder, unspecified; K21.9 Gastro-esophageal reflux disease without esophagitis; G50.0 Trigeminal neuralgia; Z82.49 Family history of ischemic heart disease and other diseases of the circulatory system; Z88.5 Allergy status to narcotic agent; Z90.49 Acquired absence of other specified parts of digestive tract; Z98.890 Other specified postprocedural states; Z90.710 Acquired absence of both cervix and uterus; Z79.899 Other long term (current) drug therapy

== ENCOUNTER 2023-07-05 17:20 | Emergency (ER) | payer OTHER ==
[~2023-07-05] VITALS: Wt 77.1 kg
[2023-07-05 18:35] LABS: BASO % 0.4 % (0.0-1.0); EOS # 0.4 10*3/uL (0.0-0.4); EOS % 5.1 % (1.0-4.0); HEMATOCRIT 36.7 % (37.0-47.0); LYMPH # 1.7 10*3/uL (1.3-4.4); LYMPH % 23.5 % (27.0-41.0); MEAN CELL VOLUME 94.3 fl (81.0-99.0); MEAN CORPUSCULAR HGB CONC 30.8 g/dl (33.0-37.0); MEAN PLATELET VOLUME 9.4 fl (9.6-12.3); MONO # 0.6 10*3/uL (0.1-1.0); MONO % 8.3 % (3.0-9.0); NEUT # 4.5 10*3/uL (2.3-7.9); NEUT % 61.6 % (47.0-73.0); PLATELET COUNT AUTOMATED 211 10*3/uL (130-400); RED BLOOD COUNT 3.89 10*6/uL (4.10-5.10); WHITE BLOOD COUNT 7.3 10*3/uL (4.8-10.8)
[2023-07-05 18:50] LABS: ACT PARTIAL THROMBO TIME 28.5 SECONDS (20.0-32.1)
[2023-07-05 18:56] LABS: ALKALINE PHOSPHATASE 91 U/L (46-116); BUN 18 mg/dl (9-23); CHLORIDE 104 mmol/L (98-107); LIPASE 30 U/L (12-53); POTASSIUM 3.8 mmol/L (3.4-5.1); TOTAL PROTEIN 6.7 gm/dL (6.0-8.0)
[2023-07-05 19:00] LABS: SGPT/ALT < 7 U/L (5-49)
[2023-07-05] MEDS ORDERED: DOXYCYCLINE HY100 M3 PO (20:39)
[2023-07-05] MEDS ORDERED: BENZONATATE100 M1 PO (20:39)
[2023-07-05] MEDS ORDERED: Doxycycline Hyclate 100 MG CAP PO ONE (20:40)
[2023-07-05] MEDS ORDERED: BENZONATATE 100 MG CAP PO ONE (20:40)
== END 2023-07-05 20:54 | disposition home or self-care (01) ==
LOC: ED 17:20
PROVIDERS: Emergency Medicine
DX: J18.9 Pneumonia, unspecified organism (principal); Z20.822 Contact with and (suspected) exposure to COVID-19; J44.9 Chronic obstructive pulmonary disease, unspecified; Z88.6 Allergy status to analgesic agent; Z88.5 Allergy status to narcotic agent; Z79.2 Long term (current) use of antibiotics; Z79.899 Other long term (current) drug therapy; Z96.653 Presence of artificial knee joint, bilateral; Z90.49 Acquired absence of other specified parts of digestive tract; Z90.711 Acquired absence of uterus with remaining cervical stump; Z98.890 Other specified postprocedural states

== ENCOUNTER 2023-07-10 11:54 | Emergency (ER) | payer OTHER ==
[~2023-07-10] VITALS: Ht 157.4 cm; Wt 81.6 kg
[~2023-07-10 11:54] MED LIST changes: +BENZONATATE100 M1 PO; +DOXYCYCLINE HY100 M3 PO
[2023-07-10 13:18] LABS: BASO % 0.5 % (0.0-1.0); EOS # 0.2 10*3/uL (0.0-0.4); EOS % 2.1 % (1.0-4.0); HEMATOCRIT 40.3 % (37.0-47.0); LYMPH # 1.2 10*3/uL (1.3-4.4); MEAN CELL VOLUME 93.7 fl (81.0-99.0); MEAN CORPUSCULAR HGB 29.1 pg (27.0-31.0); MEAN PLATELET VOLUME 9.6 fl (9.6-12.3); MONO # 0.6 10*3/uL (0.1-1.0); NEUT # 5.7 10*3/uL (2.3-7.9); NEUT % 73.1 % (47.0-73.0); PLATELET COUNT AUTOMATED 221 10*3/uL (130-400); RED CELL DISTRI WIDTH 13.1 % (0-14.5); WHITE BLOOD COUNT 7.7 10*3/uL (4.8-10.8)
[2023-07-10 13:40] LABS: ALKALINE PHOSPHATASE 117 U/L (46-116); BUN 27 mg/dl (9-23); CHLORIDE 102 mmol/L (98-107); LIPASE 31 U/L (12-53); POTASSIUM 3.4 mmol/L (3.4-5.1); TOTAL PROTEIN 7.1 gm/dL (6.0-8.0)
[2023-07-10 13:43] LABS: SGPT/ALT < 7 U/L (5-49)
[2023-07-10] MEDS ORDERED: SODIUM CHLORIDE 0.9% 1,000 ML IV ONE (14:00)
[2023-07-10] MEDS ORDERED: Promethazine Hydrochloride 25 MG TAB PO ONE (14:00)
[2023-07-10] MEDS ORDERED: AMOX-CLAV 875-1 EACH PO (15:55)
[2023-07-10] MEDS ORDERED: PROMETHAZINE12.5 M3 PO (15:55)
[2023-07-10] MEDS ORDERED: Amoxicillin/Clavulanate Pota 875 MG TAB PO ONE (16:00)
== END 2023-07-10 15:59 | disposition home or self-care (01) ==
LOC: ED 11:54
PROVIDERS: Nurse Practitioner Family
DX: H66.92 Otitis media, unspecified, left ear (principal); E86.0 Dehydration; R11.2 Nausea with vomiting, unspecified; T36.4X5A Adverse effect of tetracyclines, initial encounter; F32.A Depression, unspecified; N13.30 Unspecified hydronephrosis; E78.5 Hyperlipidemia, unspecified; D64.9 Anemia, unspecified; E11.65 Type 2 diabetes mellitus with hyperglycemia; E11.22 Type 2 diabetes mellitus with diabetic chronic kidney disease; I13.0 Hypertensive heart and chronic kidney disease with heart failure and stage 1 through stage 4 chronic kidney disease, or unspecified chronic kidney disease; N18.30 Chronic kidney disease, stage 3 unspecified; N17.9 Acute kidney failure, unspecified; Z88.6 Allergy status to analgesic agent; Z88.5 Allergy status to narcotic agent; Z96.653 Presence of artificial knee joint, bilateral; Z90.49 Acquired absence of other specified parts of digestive tract; Z98.890 Other specified postprocedural states; Z95.5 Presence of coronary angioplasty implant and graft; Z90.710 Acquired absence of both cervix and uterus; Y92.89 Other specified places as the place of occurrence of the external cause

== ENCOUNTER → 2023-08-31 | Outpatient (CLI) | payer OTHER ==
[~2023-08-31] MED LIST changes: +AMOX-CLAV 875-1 EACH PO; +ARIPIPRAZOLE20 MG PO; +CYCLOBENZAPRINE10 MG PO; +PROMETHAZINE12.5 M3 PO
== END | disposition home or self-care (01) ==
LOC: RESCLI 00:54
PROVIDERS: ATTEND Internal Medicine
DX: G20.B1 Parkinson's disease with dyskinesia, without mention of fluctuations (principal); F32.9 Major depressive disorder, single episode, unspecified; I12.9 Hypertensive chronic kidney disease with stage 1 through stage 4 chronic kidney disease, or unspecified chronic kidney disease; I25.118 Atherosclerotic heart disease of native coronary artery with other forms of angina pectoris; M54.31 Sciatica, right side; M54.32 Sciatica, left side; R60.0 Localized edema; K21.9 Gastro-esophageal reflux disease without esophagitis; K44.9 Diaphragmatic hernia without obstruction or gangrene; Z13.9 Encounter for screening, unspecified; M54.9 Dorsalgia, unspecified; N18.32 Chronic kidney disease, stage 3b; M25.511 Pain in right shoulder; Z29.9 Encounter for prophylactic measures, unspecified; G25.81 Restless legs syndrome; Z98.890 Other specified postprocedural states; Z79.899 Other long term (current) drug therapy; Z88.5 Allergy status to narcotic agent; Z88.8 Allergy status to other drugs, medicaments and biological substances

== ENCOUNTER → 2023-09-04 | Outpatient (CLI) | payer OTHER ==
[~2023-09-04] MED LIST changes: -ARIPIPRAZOLE20 MG PO; -CYCLOBENZAPRINE10 MG PO
[2023-09-04 13:14] LABS: ALKALINE PHOSPHATASE 108 U/L (46-116); BUN 20 mg/dl (9-23); CHLORIDE 106 mmol/L (98-107); CHOLESTEROL 160 mg/dL (<200); LDL CHOLESTEROL 71 mg/dL (9-159); POTASSIUM 3.9 mmol/L (3.4-5.1); TOTAL PROTEIN 7.1 gm/dL (6.0-8.0); TRIGLYCERIDES 251 mg/dl (<150)
[2023-09-04 13:18] LABS: SGPT/ALT < 7 U/L (5-49)
== END | disposition home or self-care (01) ==
LOC: LAB 12:14
PROVIDERS: Student in an Organized Health Care Education/Training Program; ATTEND Family Medicine
DX: Z29.9 Encounter for prophylactic measures, unspecified (principal); J44.9 Chronic obstructive pulmonary disease, unspecified

== ENCOUNTER → 2023-09-05 | Outpatient (CLI) | payer OTHER ==
[2023-09-05 11:23] LABS: CHOLESTEROL 149 mg/dL (<200); LDL CHOLESTEROL 74 mg/dL (9-159); TRIGLYCERIDES 187 mg/dl (<150)
== END | disposition home or self-care (01) ==
LOC: LAB 00:26
PROVIDERS: Student in an Organized Health Care Education/Training Program; ATTEND Family Medicine
DX: Z29.9 Encounter for prophylactic measures, unspecified (principal); I10 Essential (primary) hypertension; E11.9 Type 2 diabetes mellitus without complications; E78.5 Hyperlipidemia, unspecified

== ENCOUNTER 2023-09-10 20:23 | Emergency (ER) | payer OTHER ==
[~2023-09-10] VITALS: Ht 157.4 cm; Wt 82.6 kg
[2023-09-10 20:43] LABS: BASO # 0.1 10*3/uL (0.0-0.1); BASO % 0.8 % (0.0-1.0); EOS # 0.5 10*3/uL (0.0-0.4); EOS % 5.7 % (1.0-4.0); HEMATOCRIT 36.4 % (37.0-47.0); LYMPH # 2.3 10*3/uL (1.3-4.4); LYMPH % 28.7 % (27.0-41.0); MEAN CELL VOLUME 94.1 fl (81.0-99.0); MEAN CORPUSCULAR HGB 29.7 pg (27.0-31.0); MEAN CORPUSCULAR HGB CONC 31.6 g/dl (33.0-37.0); MEAN PLATELET VOLUME 9.8 fl (9.6-12.3); MONO # 0.6 10*3/uL (0.1-1.0); MONO % 7.5 % (3.0-9.0); NEUT # 4.5 10*3/uL (2.3-7.9); NEUT % 56.2 % (47.0-73.0); PLATELET COUNT AUTOMATED 182 10*3/uL (130-400); RED BLOOD COUNT 3.87 10*6/uL (4.10-5.10); RED CELL DISTRI WIDTH 12.9 % (0-14.5); WHITE BLOOD COUNT 7.9 10*3/uL (4.8-10.8)
[2023-09-10] MEDS ORDERED: ARIPIPRAZOLE20 MG PO (20:56)
[2023-09-10] MEDS ORDERED: CYCLOBENZAPRINE10 MG PO (20:57)
[2023-09-10 21:04] LABS: ALKALINE PHOSPHATASE 96 U/L (46-116); BUN 17 mg/dl (9-23); CHLORIDE 107 mmol/L (98-107); POTASSIUM 3.6 mmol/L (3.4-5.1); SGPT/ALT < 7 U/L (5-49); TOTAL PROTEIN 6.6 gm/dL (6.0-8.0)
== END 2023-09-11 00:02 | disposition home or self-care (01) ==
LOC: ED 20:23
PROVIDERS: Internal Medicine
DX: R07.89 Other chest pain (principal); D64.9 Anemia, unspecified; E11.22 Type 2 diabetes mellitus with diabetic chronic kidney disease; I13.0 Hypertensive heart and chronic kidney disease with heart failure and stage 1 through stage 4 chronic kidney disease, or unspecified chronic kidney disease; N18.32 Chronic kidney disease, stage 3b; Z87.442 Personal history of urinary calculi; Z88.5 Allergy status to narcotic agent; Z98.890 Other specified postprocedural states; Z96.653 Presence of artificial knee joint, bilateral; Z90.710 Acquired absence of both cervix and uterus; Z95.5 Presence of coronary angioplasty implant and graft

== ENCOUNTER → 2023-11-30 | Outpatient (CLI) | payer OTHER ==
[~2023-11-30] MED LIST changes: +ARIPIPRAZOLE20 MG PO; +CYCLOBENZAPRINE10 MG PO; +Regadenoson 0.4 MG/5 ML SYR IV ONE; +Technetium Tc 99M Tetrofosmi 0.23 MG KIT IJ SCH
== END | disposition home or self-care (01) ==
LOC: CARD 00:19
PROVIDERS: ATTEND Internal Medicine Cardiovascular Disease
DX: I10 Essential (primary) hypertension (principal); E11.9 Type 2 diabetes mellitus without complications; R06.09 Other forms of dyspnea; R07.89 Other chest pain

== ENCOUNTER → 2024-02-12 | Outpatient (CLI) | payer OTHER ==
[~2024-02-12] MED LIST changes: -Regadenoson 0.4 MG/5 ML SYR IV ONE; -Technetium Tc 99M Tetrofosmi 0.23 MG KIT IJ SCH
[2024-02-12 10:57] LABS: BASO # 0.1 10*3/uL (0.0-0.1); BASO % 0.5 % (0.0-1.0); EOS # 0.2 10*3/uL (0.0-0.4); EOS % 1.6 % (1.0-4.0); HEMATOCRIT 39.9 % (37.0-47.0); LYMPH # 2.9 10*3/uL (1.3-4.4); LYMPH % 29.1 % (27.0-41.0); MEAN CELL VOLUME 91.3 fl (81.0-99.0); MEAN CORPUSCULAR HGB 29.1 pg (27.0-31.0); MEAN CORPUSCULAR HGB CONC 31.8 g/dl (33.0-37.0); MONO # 0.6 10*3/uL (0.1-1.0); NEUT # 6.2 10*3/uL (2.3-7.9); NEUT % 61.4 % (47.0-73.0); PLATELET COUNT AUTOMATED 201 10*3/uL (130-400); RED BLOOD COUNT 4.37 10*6/uL (4.10-5.10); RED CELL DISTRI WIDTH 13.2 % (0-14.5)
[2024-02-12 11:23] LABS: TOTAL PROTEIN 6.7 gm/dL (6.0-8.0)
== END | disposition home or self-care (01) ==
LOC: LAB 10:33
PROVIDERS: ATTEND Nurse Practitioner Family
DX: I12.9 Hypertensive chronic kidney disease with stage 1 through stage 4 chronic kidney disease, or unspecified chronic kidney disease (principal); E11.22 Type 2 diabetes mellitus with diabetic chronic kidney disease; N18.32 Chronic kidney disease, stage 3b; E78.5 Hyperlipidemia, unspecified; G25.81 Restless legs syndrome

== ENCOUNTER 2024-03-22 17:29 | Emergency (ER) | payer OTHER ==
[~2024-03-22] VITALS: Ht 157.4 cm; Wt 81.6 kg
[2024-03-22] MEDS ORDERED: FLUCONAZOLE 100 MG TAB PO ONE (18:20)
[2024-03-22] MEDS ORDERED: METHOCARBAMOL 500 MG TAB PO ONE (18:20)
[2024-03-22] MEDS ORDERED: FLUCONAZOLE100 MG PO (18:21)
[2024-03-22] MEDS ORDERED: METHOCARBAMOL500 M1 PO (18:21)
[2024-03-22] MEDS ORDERED: Nizoral 2%15 GM T (18:22)
== END 2024-03-22 18:39 | disposition home or self-care (01) ==
LOC: ED 17:29
DX: M54.32 Sciatica, left side (principal); L30.4 Erythema intertrigo; M79.652 Pain in left thigh; F32.A Depression, unspecified; E10.22 Type 1 diabetes mellitus with diabetic chronic kidney disease; I13.0 Hypertensive heart and chronic kidney disease with heart failure and stage 1 through stage 4 chronic kidney disease, or unspecified chronic kidney disease; N18.30 Chronic kidney disease, stage 3 unspecified; I50.9 Heart failure, unspecified; Z88.5 Allergy status to narcotic agent; Z90.49 Acquired absence of other specified parts of digestive tract; Z90.710 Acquired absence of both cervix and uterus; Z96.653 Presence of artificial knee joint, bilateral; Z98.890 Other specified postprocedural states